=== PATIENT | male | born 1940 | race Caucasian/White ===

== ENCOUNTER → 2017-02-21 | Outpatient (CLI) | payer MEDICARE, OTHER ==
[~2017-02-21] MED LIST: CIAL20TA PO; FURO40TA PO; HYDR25TA5 PO; LATA.005%O EACH EYE; LATA0.002 EACH EYE; POTA20TA5 PO
[2017-02-21 15:36] LABS: POTASSIUM 4.1 MEQ/L (3.5-5.1)
== END ==
LOC: CLAB 14:03
PROVIDERS: ATTEND Family Medicine
DX: E87.6 Hypokalemia (principal)
CPT/HCPCS: 36415; 80048

== ENCOUNTER → 2018-02-14 | Outpatient (CLI) | payer MEDICARE ==
[~2018-02-14] MED LIST changes: -LATA0.002 EACH EYE; +MACR100C2 PO; +POTA-163 PO
[2018-02-14 10:32] LABS: ALBUMIN 3.1 GM/DL (3.4-5.0); AST (GOT) 33 U/L (15-37); BICARBONATE 27.5 MEQ/L (21.0-32.0); BLOOD UREA NITROGEN 18 MG/DL (7-18); CALCIUM 9.3 MG/DL (8.5-10.1); CHLORIDE 100 MEQ/L (98-107); CREATININE 1.06 MG/DL (0.60-1.30); GLOMERULAR FILTRATION RATE 68 ML/MIN (>89); GLUCOSE,FASTING 96 MG/DL (74-99); SODIUM (NA) 137 MEQ/L (136-145)
[2018-02-14 10:33] LABS: ALT (GPT) 30 U/L (12-78)
[2018-02-14 10:35] LABS: ALKALINE PHOSPHATASE 95 U/L (45-117); TOTAL BILIRUBIN ADULT 0.6 MG/DL (0.2-1.0); TOTAL PROTEIN 7.8 GM/DL (6.4-8.2)
[2018-02-14 11:10] LABS: AMORPHOUS SEDIMENT, URINE RARE; BACTERIA, URINE MANY /hpf; BILIRUBIN, URINE NEG (NEG); BLOOD, URINE TRACE (NEG); GLUCOSE,URINE NEG (NEG); KETONE, URINE NEG (NEG); MUCUS URINE FEW /lpf (OCC); NITRITE,URINE NEG (NEG); SQUAMOUS EPITHELIAL CELL URINE 1 /hpf (0-5); URINE COLOR YELLOW (YELLW/STRAW); URINE LEUKOCYTE ESTERASE LARGE (NEG)
== END ==
LOC: CLAB 08:57
PROVIDERS: ATTEND Family Medicine
DX: I10 Essential (primary) hypertension (principal); R39.9 Unspecified symptoms and signs involving the genitourinary system; B96.1 Klebsiella pneumoniae [K. pneumoniae] as the cause of diseases classified elsewhere; Z16.11 Resistance to penicillins; Z16.29 Resistance to other single specified antibiotic
CPT/HCPCS: 36415; 80053; 81001; 87077; 87086; 87186

== ENCOUNTER 2018-02-19 16:07 | Inpatient (IN) | payer MEDICARE ==
[~2018-02-19] VITALS: Ht 175.3 cm; Wt 89.1 kg
[~2018-02-19 16:07] MED LIST changes: -MACR100C2 PO; -POTA-163 PO
[2018-02-19 16:19] VITALS: BP 138/83; PULSE 98; RESP 20; TEMP 99.2; O2SAT 98
[2018-02-19] MEDS ORDERED: SODIUM CHLOR 0.9% 1000 ML INJ 1,000 ML IV ONE (16:45)
--- NOTE | 2018-02-19 17:01 | PD ---
HPI Chief Complaint: General Weakness Time Seen by Provider: 16:25 Travel History International Travel<30 days: No Contact w/Intl Traveler<30days: No Traveled to known affect area: No History of Present Illness HPI Patient is a 77-year-old male who presents to the emergency room with his for evaluation of general weakness. Patient's reports that 1 week ago, he was diagnosed with a uti and was started on antibiotics by his pcp. Patient has been taking his antibiotics as prescribed, reports that over the past few days, he has been very weak. Reports that today, he was unable to get out of bed due to his weakness. Patient's was able to get him into a wheelchair today and bring them to the kitchen with goal of getting him to drink fluids to maintain hydration. reports that she went to go make his bed and came back with him on the floor. Reports that she was not able to get him up from the floor, they did call fire rescue for help. Patient denied trauma to head/ denies loc. Denies any chest pain/sob/abdominal pain at this time. Patient's is concerned as whenever this happens, patient ends up with sepsis due to UTI. Reports concerns that patient is so weak, he cannot ambulate or care for himself. Reports low grade fevers at home. PFSH Past Medical History Cardiovascular Problems: Yes (heart blockage) Congestive Heart Failure: Yes Genitourinary: Yes (chronic uti's) Social History Alcohol Use: Yes (occassional beer) Tobacco Use: No Substance Use: No Allergies-Medications (Allergen,Severity, Reaction): Coded Allergies: No Known Allergies (Unverified Adverse Reaction, Unknown, 02/19/18) Reported Meds & Prescriptions Reported Meds & Active Scripts Active Cialis (Tadalafil) 20 Mg Tab 20 Mg PO DAILY PRN Do not exceed 1 dose/day. Furosemide 40 Mg Tab 40 Mg PO DAILY Potassium Chloride Microencaps 20 Meq Tab 40 Meq PO DAILY Hydrochlorothiazide 25 Mg Tab 25 Mg PO DAILY Reported Xalatan Opth Drops (Latanoprost) 0.005% Drops 1 Drop EACH EYE HS Review of Systems General / Constitutional: No: Fever Eyes: No: Visual changes HENT: No: Headaches Cardiovascular: No: Chest Pain or Discomfort Respiratory: No: Shortness of Breath Gastrointestinal: No: Abdominal Pain Genitourinary: Positive: Urgency, Frequency, Dysuria Musculoskeletal: No: Pain Skin: No Rash Neurologic: Positive: Weakness Psychiatric: No: Depression Endocrine: No: Polydipsia Hematologic/Lymphatic: No: Easy Bruising Physical Exam Narrative GENERAL: Moderate distress SKIN: Focused skin assessment warm/dry. HEAD: Atraumatic. Normocephalic. EYES: Pupils equal and round. No scleral icterus. No injection or drainage. ENT: No nasal bleeding or discharge. Mucous membranes pink and moist. NECK: Trachea midline. No JVD. CARDIOVASCULAR: Regular rate and rhythm. No murmur appreciated. RESPIRATORY: No accessory muscle use. Clear to auscultation. Breath sounds equal bilaterally. GASTROINTESTINAL: Abdomen soft, non-tender, nondistended. Hepatic and splenic margins not palpable. MUSCULOSKELETAL: No obvious deformities. No clubbing. No cyanosis. No edema. NEUROLOGICAL: Awake and alert. No obvious cranial nerve deficits. PSYCHIATRIC: Flat mood and affect; insight and judgment normal. Data Data Last Documented VS Vital Signs Date Time Temp Pulse Resp B/P (MAP) Pulse Ox O2 Delivery O2 Flow Rate FiO2 02/19/18 17:40 95 Room Air 02/19/18 17:40 76 18 131/65 (87) 2.00 02/19/18 16:19 99.2 Orders Orders Sepsis Workup Initiated (02/19/18 ) Complete Blood Count With Diff (02/19/18 16:34) Comprehensive Metabolic Panel (02/19/18 16:34) Lactic Acid Sepsis Protocol (02/19/18 16:34) Urinalysis - C+S If Indicated (02/19/18 16:34) Blood Culture (02/19/18 16:34) Chest, Single Ap (02/19/18 16:34) Blood Glucose (02/19/18 16:34) Ecg Monitoring (02/19/18 16:34) Iv Access Insert/Monitor (02/19/18 16:34) Oximetry (02/19/18 16:34) Oxygen Administration (02/19/18 16:34) Sodium Chlor 0.9% 1000 Ml Inj (Ns 1000 M (02/19/18 16:45) Cath For Specimen (02/19/18 16:34) Electrocardiogram (02/19/18 ) Urine Culture (02/19/18 17:00) Ceftriaxone Inj (Rocephin Inj) (02/19/18 18:00) Admit Order (Ed Use Only) (02/19/18 18:37) Labs Laboratory Tests Test 02/19/18 17:00 White Blood Count 22.0 TH/MM3 Red Blood Count 5.07 MIL/MM3 Hemoglobin 16.3 GM/DL Hematocrit 46.3 % Mean Corpuscular Volume 91.5 FL Mean Corpuscular Hemoglobin 32.2 PG Mean Corpuscular Hemoglobin Concent 35.2 % Red Cell Distribution Width 13.5 % Platelet Count 268 TH/MM3 Mean Platelet Volume 7.7 FL Neutrophils (%) (Auto) 89.9 % Lymphocytes (%) (Auto) 2.8 % Monocytes (%) (Auto) 6.6 % Eosinophils (%) (Auto) 0.5 % Basophils (%) (Auto) 0.2 % Neutrophils # (Auto) 19.8 TH/MM3 Lymphocytes # (Auto) 0.6 TH/MM3 Monocytes # (Auto) 1.4 TH/MM3 Eosinophils # (Auto) 0.1 TH/MM3 Basophils # (Auto) 0.0 TH/MM3 CBC Comment DIFF FINAL Differential Comment Urine Color YELLOW Urine Turbidity HAZY Urine pH 6.0 Urine Specific Jones 1.015 Urine Protein 30 mg/dL Urine Glucose (UA) NEG mg/dL Urine Ketones 40 mg/dL Urine Occult Blood TRACE Urine Nitrite NEG Urine Bilirubin NEG Urine Urobilinogen 4.0 MG/DL Urine Leukocyte Esterase LARGE Urine RBC 1 /hpf Urine WBC 125 /hpf Urine Squamous Epithelial Cells 1 /hpf Urine Bacteria MANY /hpf Urine Mucus FEW /lpf Microscopic Urinalysis Comment CATH-CULTURE IND Blood Urea Nitrogen 13 MG/DL Creatinine 1.33 MG/DL Random Glucose 141 MG/DL Total Protein 8.5 GM/DL Albumin 3.0 GM/DL Calcium Level 9.1 MG/DL Alkaline Phosphatase 80 U/L Aspartate Amino Transf (AST/SGOT) 89 U/L Alanine Aminotransferase (ALT/SGPT) 28 U/L Total Bilirubin 1.9 MG/DL Sodium Level 128 MEQ/L Potassium Level 4.3 MEQ/L Chloride Level 90 MEQ/L Carbon Dioxide Level 26.2 MEQ/L Anion Gap 12 MEQ/L Estimat Glomerular Filtration Rate 52 ML/MIN Lactic Acid Level 3.0 mmol/L [facility] Medical Decision Making Medical Screen Exam Complete: Yes Emergency Medical Condition: Yes Medical Record Reviewed: Yes Interpretation(s) EKG at 1732: NSR at 86bpm, qt/qtc: 377/420, nonspecific t wave changes Vital Signs Date Time Temp Pulse Resp B/P (MAP) Pulse Ox O2 Delivery O2 Flow Rate FiO2 02/19/18 16:19 99.2 98 20 138/83 (101) 98 Differential Diagnosis uti, pyelonephritis, electrolyte abnormality, acs Narrative Course 77 year old male who presents to the ER with complaints of generalized weakness with UTI symptoms. Family is unsure what antibiotic he is taking at this time. During the course of the patients emergency department visit, the patients history, examination, and differential diagnosis were reviewed with the patient. The patient was placed on a child monitor with oximetry and frequent blood pressure monitoring. The patient had an IV access obtained and blood work sent for analysis. The patients laboratory studies were reviewed and remarkable for CBC & BMP Diagram 02/19/18 17:00 Alanine Aminotransferase (ALT/SGPT) 28 Radiology studies were reviewed and remarkable for Last Impressions Chest X-Ray 02/19/18 1634 Signed Impressions: CONCLUSION: Diffuse interstitial prominence suggesting CHF versus chronic interstitial diaz ges. Patient with a white blood cell count 22,000, UA positive for 125 white blood cells, many bacteria, large leuk esterase, negative nitrites, previous cultures were reviewed. ORDERED: URINE CULT ACT WKST: URINE 02/14/18 #1 Procedure Result Verified Site URINE CULTURE Final 02/16/18-1302 >100,000 CFU/ML KLEBSIELLA PNEUMONIAE 50-100,000 CFU/ML MIXED GRAM POSITIVE VIJI (PROBABLE CONTAMINANTS) KLE PNEUMO M.I.C. RX --------- --- AMOXICILLIN/K CLAVULANATE <8/4 S PIPERCILLIN/TAZOBACTAM <16 S AMPICILLIN/SULBACTAM >16/8 R CEFAZOLIN 4 S CEFUROXIME 8 S CEFTRIAXONE <1 S CEFTAZIDIME <1 S CEFEPIME <2 S AZTREONAM <4 S ERTAPENEM <0.5 S IMIPENEM <1 S GENTAMICIN <4 S TOBRAMYCIN <4 S TETRACYCLINE >8 R TRIMETH/SULFA <2/38 S TRIMETHOPRIM <8 S NITROFURANTOIN 64 I CIPROFLOXACIN <1 S Urine culture is currently pending. Plan to give patient a dose of Rocephin at this time, patient will require admission to the hospital for treatment of failed outpatient treatment for UTI CBC & BMP Diagram 02/19/18 17:00 Lactate 3.0 patient's culture is positive for kleb pneumonia, he is sensitive to rocephin which was ordered for him. call made to family practice residents for admission case reviewed with fp resident who accepts pt to service Diagnosis Primary Impression: UTI (urinary tract infection) Qualified Codes: N30.00 - Acute cystitis without hematuria Additional Impression: Generalized weakness Admitting Information Admitting Physician Requests: Admit Myla Diaz DO February 19, 2018 17:01
--- NOTE | 2018-02-19 17:28 | RADRPT ---
EXAM DATE: 02/19/2018 5:21 PM EDT AGE/SEX: 77 years / Male INDICATIONS: Fever. Weakness. CLINICAL DATA: This is the patient's initial encounter. Patient reports that signs and symptoms have been present for 3 days and indicates a pain score of 5/10. MEDICAL/SURGICAL HISTORY: None. None. COMPARISON: No prior [facility] exams available for comparison. FINDINGS: The heart is normal in size. There is diffuse interstitial prominence. Considerations would include e amira CHF versus chronic interstitial lung disease. No prior is available for comparison. The visualiz ed bony structures appear grossly intact. CONCLUSION: Diffuse interstitial prominence suggesting CHF versus chronic interstitial changes. Electronically signed by: Cristian Ace MD 02/19/2018 5:26 PM EDT
[2018-02-19 17:34] LABS: AUTOMATED NEUTROPHIL # 19.8 TH/MM3 (1.8-7.7); BASOPHIL % 0.2 % (0.0-2.0); EOSINOPHIL # 0.1 TH/MM3 (0-0.4); EOSINOPHIL % 0.5 % (0.0-4.0); HEMATOCRIT 46.3 % (39.0-51.0); HEMOGLOBIN 16.3 GM/DL (13.0-17.0); LYMPH % 2.8 % (9.0-44.0); LYMPHOCYTE # 0.6 TH/MM3 (1.0-4.8); MEAN CELL VOLUME 91.5 FL (80.0-100.0); MEAN CORPUSCULAR HEMOGLOBIN 32.2 PG (27.0-34.0); MEAN CORPUSCULAR HGB CONC 35.2 % (32.0-36.0); MEAN PLATELET VOLUME 7.7 FL (7.0-11.0); MONO % 6.6 % (0.0-8.0); MONOCYTE # 1.4 TH/MM3 (0-0.9); NEUT % 89.9 % (16.0-70.0); PLATELET COUNT 268 TH/MM3 (150-450); RED BLOOD COUNT 5.07 MIL/MM3 (4.50-5.90); RED CELL DISTRIBUTION WIDTH 13.5 % (11.6-17.2)
[2018-02-19 17:40] VITALS: BP 131/65; PULSE 75; PULSE 76; RESP 18; O2SAT 95
[2018-02-19 17:42] LABS: BACTERIA, URINE MANY /hpf; BILIRUBIN, URINE NEG (NEG); BLOOD, URINE TRACE (NEG); GLUCOSE,URINE NEG (NEG); KETONE, URINE 40 mg/dL (NEG); MUCUS URINE FEW /lpf (OCC); NITRITE,URINE NEG (NEG); SQUAMOUS EPITHELIAL CELL URINE 1 /hpf (0-5); URINE COLOR YELLOW (YELLW/STRAW); URINE LEUKOCYTE ESTERASE LARGE (NEG)
[2018-02-19 17:51] LABS: ALT (GPT) 28 U/L (12-78)
[2018-02-19 17:52] LABS: ALKALINE PHOSPHATASE 80 U/L (45-117); TOTAL BILIRUBIN ADULT 1.9 MG/DL (0.2-1.0); TOTAL PROTEIN 8.5 GM/DL (6.4-8.2)
[2018-02-19] MEDS ORDERED: cefTRIAXone INJ 1,000 MG in SODIUM CHLORIDE 0.9% INJ 100 ML IV ONE (18:00)
[2018-02-19 18:18] LABS: AST (GOT) 89 U/L (15-37); BICARBONATE 26.2 MEQ/L (21.0-32.0); BLOOD UREA NITROGEN 13 MG/DL (7-18); CALCIUM 9.1 MG/DL (8.5-10.1); CHLORIDE 90 MEQ/L (98-107); CREATININE 1.33 MG/DL (0.60-1.30); GLOMERULAR FILTRATION RATE 52 ML/MIN (>89); GLUCOSE,RANDOM 141 MG/DL (74-106); SODIUM (NA) 128 MEQ/L (136-145)
[2018-02-19] MEDS ORDERED: MACR100C2 PO (18:42)
[2018-02-19] MEDS ORDERED: POTA-163 PO (18:42)
--- NOTE | 2018-02-19 19:00 | HHI.HP ---
HPI Service Family Medicine Primary Care Physician Loren Chapman MD Admission Diagnosis Sepsis, uti Diagnoses: International Travel<30 Days: No Contact w/Intl Traveler<30days: No Known Affected Area: No History of Present Illness Patient is a 77-year-old male past medical history of urethral strictures (per chart review), glaucoma, and HTN who presented to the ED via [facility] due to worsening weakness and confusion from UTI. Patient was seen in the family medicine clinic on 02/12 with urinary symptoms (dysuria) and was prescribed Macrobid 100mg Q12hrs. at bedside provided contributory history. She reports patient's urinary symptoms were not improving on Macrobid however he refused to return to the clinic. She reports he was having fevers (subjective) and chills at home. Today he became extremely weak, unable to walk or stand on his own and confused. The weakness was so severe he necessitated use of a wheelchair. Thus his decided to call 911 to have him evaluated in the ED. Endorses back pain and dysuria. Denies chest pain, shortness of breath, N/V, hematuria or history of kidney stones. Per chart review patient has history of urethral strictures, however patient and reports that he is able to void. (Carla Small MD, R1) Review of Systems Constitutional: COMPLAINS OF: Fever, Chills Endocrine: COMPLAINS OF: Heat/cold intolerance (cold intolerance) Eyes: COMPLAINS OF: Vision loss Ears, nose, mouth, throat: DENIES: Ear Pain Respiratory: COMPLAINS OF: Cough (since last month), DENIES: Wheezing, Shortness of breath Cardiovascular: DENIES: Chest pain, Syncope Gastrointestinal: COMPLAINS OF: Difficulty Swallowing (difficulty swallilng solid foods), DENIES: Abdominal pain, Bloody stools, Diarrhea, Nausea, Vomiting Genitourinary: COMPLAINS OF: Dysuria, DENIES: Urinary incontinence, Hematuria Musculoskeletal: COMPLAINS OF: Back pain (chronic back pain but it has worsen within the past wk), DENIES: Neck pain Integumentary: DENIES: Rash Hematologic/lymphatic: DENIES: Bruising Neurologic: DENIES: Speech Problems Psychiatric: COMPLAINS OF: Confusion (Carla Small MD, R1) Past Family Social History Past Medical History Glaucoma HTN LE edema Hypokalemia Dysphagia with solid foods 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 ( 77yr ago) urosepsis (2012) Past Surgical History Tonsillectomy Left arm surgery Cataract surgery (Carla Small MD, R1) Allergies: Coded Allergies: No Known Allergies (Unverified Allergy, Unknown, 02/19/18) Family History HTN- Daughter MS- father depression- son Social History Former smoker for 20yr, quit 3 yr ago No alcohol or illicit drug use Patient ambulates independently at baseline without use of assistive devices (Carla Small MD, R1) Physical Exam Vital Signs Vital Signs Date Time Temp Pulse Resp B/P (MAP) Pulse Ox O2 Delivery O2 Flow Rate FiO2 02/19/18 17:40 95 Room Air 02/19/18 17:40 76 18 131/65 (87) 95 Nasal Cannula 2.00 02/19/18 17:40 76 18 94 Room Air 02/19/18 17:40 75 18 131/65 (87) 95 2.00 02/19/18 16:19 99.2 98 20 138/83 (101) 98 Physical Exam GENERAL: This is a well-nourished, well-developed patient, in no apparent distress. SKIN: No rashes, ecchymoses or lesions. Cool and dry. HEAD: Atraumatic. Normocephalic. No temporal or scalp tenderness. EYES: Pupils equal round and reactive. Extraocular motions intact. No scleral icterus. No injection or drainage. ENT: Nose without bleeding, purulent drainage or septal hematoma. Throat without erythema, tonsillar hypertrophy or exudate. Uvula midline. Airway patent. NECK: Trachea midline. No JVD or lymphadenopathy. Supple, nontender, no meningeal signs. CARDIOVASCULAR: Regular rate and rhythm without murmurs, gallops, or rubs. RESPIRATORY: Coarse breath sounds bilaterally at bases. No wheezes, rales, or rhonchi. GASTROINTESTINAL: Abdomen soft, nondistended, mild suprapubic tenderness on palpation. No hepato-splenomegaly, or palpable masses. No guarding. Minimal left CVA tenderness on palpation. MUSCULOSKELETAL: Extremities without clubbing, cyanosis, or edema. No joint tenderness, effusion, or edema noted. No calf tenderness. +2 DP pulses BL. NEUROLOGICAL: Awake, alert and oriented 3. Cranial nerves II through XII intact. Motor and sensory grossly within normal limits. 4 out of 5 muscle strength in all muscle groups. Normal speech. Laboratory Laboratory Tests Test 02/19/18 17:00 White Blood Count 22.0 Red Blood Count 5.07 Hemoglobin 16.3 Hematocrit 46.3 Mean Corpuscular Volume 91.5 Mean Corpuscular Hemoglobin 32.2 Mean Corpuscular Hemoglobin Concent 35.2 Red Cell Distribution Width 13.5 Platelet Count 268 Mean Platelet Volume 7.7 Neutrophils (%) (Auto) 89.9 Lymphocytes (%) (Auto) 2.8 Monocytes (%) (Auto) 6.6 Eosinophils (%) (Auto) 0.5 Basophils (%) (Auto) 0.2 Neutrophils # (Auto) 19.8 Lymphocytes # (Auto) 0.6 Monocytes # (Auto) 1.4 Eosinophils # (Auto) 0.1 Basophils # (Auto) 0.0 CBC Comment DIFF FINAL Differential Comment Urine Color YELLOW Urine Turbidity HAZY Urine pH 6.0 Urine Specific Flanagan 1.015 Urine Protein 30 Urine Glucose (UA) NEG Urine Ketones 40 Urine Occult Blood TRACE Urine Nitrite NEG Urine Bilirubin NEG Urine Urobilinogen 4.0 Urine Leukocyte Esterase LARGE Urine RBC 1 Urine WBC 125 Urine Squamous Epithelial Cells 1 Urine Bacteria MANY Urine Mucus FEW Microscopic Urinalysis Comment CATH-CULTURE IND Blood Urea Nitrogen 13 Creatinine 1.33 Random Glucose 141 Total Protein 8.5 Albumin 3.0 Calcium Level 9.1 Alkaline Phosphatase 80 Aspartate Amino Transf (AST/SGOT) 89 Alanine Aminotransferase (ALT/SGPT) 28 Total Bilirubin 1.9 Sodium Level 128 Potassium Level 4.3 Chloride Level 90 Carbon Dioxide Level 26.2 Anion Gap 12 Estimat Glomerular Filtration Rate 52 Lactic Acid Level 3.0 Date/Time Source Procedure Growth Status 02/19/18 17:50 Blood Peripheral Aerobic Blood Culture Pending Received 02/19/18 17:50 Blood Peripheral Anaerobic Blood Culture Pending Received 02/19/18 17:00 Urine Catheterized Urine Urine Culture Pending Received (Carla Small MD, R1) Result Diagram: 02/19/18 1700 02/19/18 1700 Imaging Last Impressions Chest X-Ray 02/19/18 1634 Signed Impressions: CONCLUSION: Diffuse interstitial prominence suggesting CHF versus chronic interstitial diaz ges. (Carla Small MD, R1) Caprini VTE Risk Assessment Caprini VTE Risk Assessment: Mod/High Risk (score >= 2) Caprini Risk Assessment Model Point Value = 1 Point Value = 2 Point Value = 3 Point Value = 5 Age 41-60 Minor surgery BMI > 25 kg/m2 Swollen legs Varicose veins or History of unexplained or recurrent spontaneous Oral contraceptives or hormone replacement Sepsis (< 1 month) Serious lung disease, including pneumonia (< 1 month) Abnormal pulmonary function Acute myocardial infarction Congestive heart failure (< 1 month) History of inflammatory bowel disease Medical patient at bed rest Age 61-74 Arthroscopic surgery Major open surgery (> 45 min) Laparoscopic surgery (> 45 min) Malignancy Confined to bed (> 72 hours) Immobilizing plaster cast Central venous access Age >= 75 History of VTE Family history of VTE Factor V Leiden Prothrombin [id number] Lupus anticoagulant Anticardiolipin antibodies Elevated serum homocysteine Heparin-induced thrombocytopenia Other congenital or acquired thrombophilia Stroke (< 1 month) Elective arthroplasty Hip, pelvis, or leg fracture Acute spinal cord injury (< 1 month) Prophylaxis Regimen Total Risk Factor Score Risk Level Prophylaxis Regimen 0-1 Low Early ambulation 2 Moderate Order ONE of the following: *Sequential Compression Device (SCD) *Heparin 5000 units SQ BID 3-4 Higher Order ONE of the following medications: *Heparin 5000 units SQ TID *Enoxaparin/Lovenox 40 mg SQ daily (WT < 150 kg, CrCl > 30 mL/min) *Enoxaparin/Lovenox 30 mg SQ daily (WT < 150 kg, CrCl > 10-29 mL/min) *Enoxaparin/Lovenox 30 mg SQ BID (WT < 150 kg, CrCl > 30 mL/min) AND/OR *Sequential Compression Device (SCD) 5 or more Highest Order ONE of the following medications: *Heparin 5000 units SQ TID (Preferred with Epidurals) *Enoxaparin/Lovenox 40 mg SQ daily (WT < 150 kg, CrCl > 30 mL/min) *Enoxaparin/Lovenox 30 mg SQ daily (WT < 150 kg, CrCl > 10-29 mL/min) *Enoxaparin/Lovenox 30 mg SQ BID (WT < 150 kg, CrCl > 30 mL/min) AND *Sequential Compression Device (SCD) (Carla Small MD, R1) Assessment and Plan Assessment and Plan Patient is a 77-year-old male past medical history of urethral strictures (per chart review), glaucoma, hypokalemia and urethral strictures presenting with: Code Status Full code Discussed Condition With SDW Dr. Marion (Carla Small MD, R1) Attending Attestation THIS CASE WAS DISCUSSED WITH THE RESIDENT PHYSICIANS. I HAVE REVIEWED THE RECORD AND AGREE WITH THE ABOVE NOTE AND PLAN OF CARE WAS DISCUSSED. I HAVE AUTHORIZED THE ORDER FOR ADMISSION TO AN IN-PATIENT STATUS. (Sheldon German MD) Problem List: (1) Sepsis ICD Codes: A41.9 - Sepsis, unspecified organism Status: Acute Plan: Patient with sxs of weakness and confusion today in the setting of failed outpatient treatment of UTI with Macrobid. In the ED patient was found to meet severe sepsis criteria due to urinary source with leukocytosis (22) , elevated HR (98) and lactic acid 3. In the ED patient received 1 L bolus of NS and Rocephin 1 gm IV x1. Urine culture from 02/12 during clinic visit shows Klebsiella pneumonia greater than 100,000 colonies sensitive to Macrobid and Rocephin. UA today shows large leuk esterase, urine WBC 125, positive ketones and protein Patient reports improvement of sxs since treatment in the ED. He is awake, alert and oriented x 3. C/w rocephin 1 g IV Q24hrs IVF at 100mls/hr Tylenol for pain Follow-up: Blood cultures, urine culture Lactic acid A.m. labs Renal ultrasound (2) UTI (urinary tract infection) ICD Codes: N39.0 - Urinary tract infection, site not specified Status: Acute Plan: see plan above (3) Hyponatremia ICD Codes: E87.1 - Hypo-osmolality and hyponatremia Status: Resolved Plan: Patient found to have a sodium of 128 on admission Follow-up repeat BMP Replete as needed (4) Dysphagia ICD Codes: R13.10 - Dysphagia, unspecified Status: Chronic Plan: Patient with chronic history of dysphagia with solid foods Follow-up bedside swallow and advance diet to mechanical soft if patient able to pass swallow test. 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 However patient and report he is able to void Small amount of dark urine observed in bedside portable urinal bottle Follow-up: I/Os bladder scan Place [place] if bladder scan shows retention of greater than 300 cc of urine (7) Glaucoma ICD Codes: H40.9 - Glaucoma Status: Acute Plan: Continue with home medication (8) HTN (hypertension) ICD Codes: I10 - Hypertension Status: Chronic Plan: BP on admission 138/83 c/w home medications (9) Nutrition, metabolism, and development symptoms ICD Codes: R63.8 - Other symptoms and signs concerning food and fluid intake Plan: Fluids: 100mls/hr Electrolytes: Continue to monitor and replete as needed Nutrition: NPO pending results of bedside swallow DVT prophylaxis: Heparin TID (Carla Small MD, R1) Physician Certification 2 Midnight Certification Type: Admission for Inpatient Services Order for Inpatient Services The services are ordered in accordance with Medicare regulations or non- Medicare payer requirements, as applicable. In the case of services not specified as inpatient-only, they are appropriately provided as inpatient services in accordance with the 2-midnight benchmark. Estimated LOS (days): 4 days is the estimated time the patient will need to remain in the hospital, assuming treatment plan goals are met and no additional complications. Post-Hospital Plan: Home (Carla Small MD, R1) Problem Qualifiers (1) UTI (urinary tract infection): Qualified Codes: N30.00 - Acute cystitis without hematuria Carla Small MD, R1 February 19, 2018 18:59 Sheldon German MD February 20, 2018 10:33
[2018-02-19] MEDS ORDERED: NALOXONE HCL 0.4 MG/ML AMP IV PUSH PRN (19:15)
[2018-02-19] MEDS ORDERED: MAGNESIUM HYDROXIDE SUSP 30 ML CUP PO PRN (19:15)
[2018-02-19] MEDS ORDERED: LACTULOSE SYRUP 20 GM/30 ML CUP PO PRN (19:15)
[2018-02-19] MEDS ORDERED: SENNOSIDES 8.6 MG TAB PO PRN (19:15)
[2018-02-19] MEDS ORDERED: BISACODYL 10 MG SUPP RECTAL PRN (19:15)
[2018-02-19] MEDS ORDERED: SODIUM CHLORIDE 0.9% FLUSH 10 ML FLUSH IV FLUSH PRN (19:15)
[2018-02-19] MEDS ORDERED: ONDANSETRON ODT 4 MG TAB PO PRN (19:30)
[2018-02-19] MEDS ORDERED: ACETAMINOPHEN 325 MG TAB PO PRN (19:30)
[2018-02-19 19:36] VITALS: O2SAT 95
[2018-02-19 20:00] VITALS: BP 138/62; PULSE 74; RESP 18; O2SAT 95
[2018-02-19] MEDS: SODIUM CHLOR 0.9% 1000 ML INJ 1,000 ML IV SCH (20:04)
--- NOTE | 2018-02-19 20:56 | RADRPT ---
EXAM DATE: 02/19/2018 8:51 PM EDT AGE/SEX: 77 years / Male INDICATIONS: Increased BUN and creatinine. CLINICAL DATA: This is the patient's initial encounter. Patient reports that signs and symptoms have been present for 1 day and indicates a pain score of 0/10. MEDICAL/SURGICAL HISTORY: . Congestive heart failure. Glaucoma. Hypokalemia. Chronic urinary tract infection. . Tonsillectomy. Left arm surgery. Cataract surgery. COMPARISON: No prior [facility] exams available for comparison. No external comparison. MEASUREMENTS: Right Kidney:__8.3 x 5.5 x 4.9 cm Left Kidney:__10.1 x 5.7 x 5.6 cm FINDINGS: Right Kidney: Normal in size, shape and echogenicity. No evidence of hydronephrosis. Left Kidney: Normal in size, shape and echogenicity. No evidence of hydronephrosis. Bladder: Within normal limits given the degree of distension. CONCLUSION: 1. Unremarkable bilateral renal ultrasound. Electronically signed by: Sheldon Oliver MD 02/19/2018 8:54 PM EDT
[2018-02-19 21:18] VITALS: BP 178/78; PULSE 92; RESP 16; TEMP 97; O2SAT 93
[2018-02-19] MEDS: LATANOPROST 0.005% OPHT SOLN 2.5 ML BTL EACH EYE SCH (23:28)
[2018-02-19] MEDS: HEPARIN SODIUM - SQ 10,000 UNITS/ML VIAL SQ SCH (23:29)
[2018-02-19] MEDS: DOCUSATE SODIUM 50 MG/SENNA 8.6 MG TAB PO SCH (23:29)
[2018-02-19] MEDS: SODIUM CHLORIDE 0.9% FLUSH 10 ML FLUSH IV FLUSH SCH (23:29)
[2018-02-20] VITALS (11 sets, daily range): BP systolic 108–135; BP diastolic 66–83; PULSE 61–87; RESP 17–20; TEMP 97.4–97.9; O2SAT 94–99
[2018-02-20] MEDS ORDERED: FAMOTIDINE 20 MG TAB PO PRN (02:00)
[2018-02-20] MEDS ORDERED: LORazepam 1 MG TAB PO PRN (02:00)
[2018-02-20] MEDS ORDERED: RESP: ALBUTEROL 2.5 MG/IPRATROPIUM 0.5 MG NEB (PRN) NEB (02:00)
[2018-02-20] MEDS ORDERED: ACETAMINOPHEN 325 MG TAB PO PRN (02:00)
[2018-02-20] MEDS ORDERED: cloNIDine HCL 0.1 MG TAB PO PRN (02:00)
[2018-02-20] MEDS ORDERED: FLUMAZENIL 0.5 MG/5 ML VIAL IV PUSH PRN (02:00)
[2018-02-20] MEDS ORDERED: LORazepam 2 MG/ML VIAL IV PUSH PRN ×4 (02:00)
[2018-02-20] MEDS ORDERED: SODIUM CHLORIDE 0.9% FLUSH 10 ML FLUSH IV FLUSH PRN (02:00)
[2018-02-20] MEDS ORDERED: LORazepam 2 MG TAB PO PRN (02:00)
[2018-02-20] MEDS ORDERED: ONDANSETRON ODT 4 MG TAB PO PRN (02:15)
[2018-02-20] MEDS ORDERED: PILL SPLITTER OTHER PRN (02:15)
[2018-02-20] MEDS: HEPARIN SODIUM - SQ 10,000 UNITS/ML VIAL SQ SCH ×3 (04:00→20:53)
[2018-02-20] MEDS: SODIUM CHLOR 0.9% 1000 ML INJ 1,000 ML IV SCH ×2 (05:21→18:31)
[2018-02-20 05:45] LABS: ALBUMIN 2.5 GM/DL (3.4-5.0); ALKALINE PHOSPHATASE 64 U/L (45-117); ALT (GPT) 17 U/L (12-78); AST (GOT) 25 U/L (15-37); BLOOD UREA NITROGEN 13 MG/DL (7-18); CHLORIDE 97 MEQ/L (98-107); CREATININE 0.89 MG/DL (0.60-1.30); GLOMERULAR FILTRATION RATE 83 ML/MIN (>89); GLUCOSE,RANDOM 109 MG/DL (74-106); SODIUM (NA) 136 MEQ/L (136-145); TOTAL BILIRUBIN ADULT 1.1 MG/DL (0.2-1.0); TOTAL PROTEIN 6.7 GM/DL (6.4-8.2)
[2018-02-20 06:04] LABS: HEMATOCRIT 41.6 % (39.0-51.0); HEMOGLOBIN 14.7 GM/DL (13.0-17.0); MEAN CELL VOLUME 91.5 FL (80.0-100.0); MEAN CORPUSCULAR HEMOGLOBIN 32.3 PG (27.0-34.0); MEAN CORPUSCULAR HGB CONC 35.3 % (32.0-36.0); MEAN PLATELET VOLUME 7.1 FL (7.0-11.0); PLATELET COUNT 246 TH/MM3 (150-450); RED BLOOD COUNT 4.55 MIL/MM3 (4.50-5.90); RED CELL DISTRIBUTION WIDTH 12.9 % (11.6-17.2); WHITE BLOOD COUNT 15.8 TH/MM3 (4.0-11.0)
[2018-02-20] MEDS ORDERED: POTASSIUM CHLORIDE 10 MEQ CONTROLLED RELEASE TAB PO ONE (06:45)
[2018-02-20 08:02] LABS: BANDS 4 % (0-6); LYMPHOCYTES 1 % (9-44); MONOCYTES 6 % (0-8); NEUTROPHIL # MANUAL DIFF 14.4 TH/MM3 (1.8-7.7); POLYS (SEG NEUTROPHILS) 87 % (16-70)
[2018-02-20] MEDS: FOLIC ACID 1 MG TAB PO SCH (08:29)
[2018-02-20] MEDS: THIAMINE HCL 100 MG TAB PO SCH (08:29)
[2018-02-20] MEDS: FUROSEMIDE 40 MG TAB PO SCH (08:30)
[2018-02-20] MEDS: DOCUSATE SODIUM 50 MG/SENNA 8.6 MG TAB PO SCH ×2 (08:30→20:54)
[2018-02-20] MEDS: MULTIVITAMINS/MINERALS THERAPEUTIC TAB PO SCH (08:30)
[2018-02-20] MEDS: POTASSIUM CHLORIDE 20 MEQ CONTROLLED RELEASE TAB PO SCH (08:30)
[2018-02-20] MEDS: HYDROCHLOROTHIAZIDE 25 MG TAB PO SCH (08:31)
[2018-02-20] MEDS: SODIUM CHLORIDE 0.9% FLUSH 10 ML FLUSH IV FLUSH SCH ×3 (08:34→20:54)
--- NOTE | 2018-02-20 10:33 | HHI.HP ---
HPI Service Family Medicine Primary Care Physician Loren Chapman MD Admission Diagnosis Sepsis, uti Diagnoses: (1) Sepsis (2) UTI (urinary tract infection) (3) Hyponatremia (4) Dysphagia (5) ANA (acute kidney injury) (6) History of urethral stricture (7) Glaucoma (8) HTN (hypertension) (9) Nutrition, metabolism, and development symptoms International Travel<30 Days: No Contact w/Intl Traveler<30days: No Known Affected Area: No History of Present Illness 77-year-old male presenting with sepsis from a urinary tract infection. He was brought to the emergency department by [facility] due to progressive confusion, weakness, and malaise. Symptoms started approximately 10 days ago and he was seen in the family medicine clinic on 02/12 with urinary symptoms and started on Macrobid. He has been taking the Macrobid as prescribed but has progressively been getting weaker and more confused. His oral intake has declined and he began having subjective fevers and chills at home. On day of presentation, he became severely weak and was unable to walk or stand, therefore 911 was called by the . In the emergency department he was noted to have indications of a urinary tract infection on his UA and he was started on Rocephin. Urine culture from his office visit on 02/12 returned with Klebsiella pneumonia with intermittent response to Macrobid but is susceptible to Rocephin. He also received 1 L IV bolus of normal saline in the ER. On evaluation this morning, patient seems to be doing much better. He is awake alert and oriented and states that he is feeling much improved. He feels hungry at this time and would like to eat. He denies any fevers or chills. He denies any nausea or vomiting. He denies any abdominal pain. He denies any chest pain or shortness of breath. He continues to feel weak and would like to work with physical therapy. He is urinating, however states that his urine is dark and he did have a postvoid residual of 266 mL based on bladder scan. 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 ( 77yr ago) urosepsis (2011) Past Surgical History Tonsillectomy Left arm surgery Cataract surgery Allergies: Coded Allergies: No Known Allergies (Unverified Allergy, Unknown, 02/19/18) Family History HTN- Daughter MS- father depression- son Social History Former smoker for 20yr, quit 3 yr ago No alcohol or illicit drug use Patient ambulates independently at baseline without use of assistive devices Physical Exam Vital Signs Vital Signs Date Time Temp Pulse Resp B/P (MAP) Pulse Ox O2 Delivery O2 Flow Rate FiO2 02/20/18 09:00 95 Nasal Cannula 2.00 02/20/18 08:05 97.4 67 17 112/70 (84) 94 02/20/18 04:00 97.4 73 20 108/66 (80) 96 02/20/18 00:00 97.9 87 20 135/75 (95) 96 02/19/18 21:18 97.0 92 16 178/78 (111) 93 02/19/18 20:30 02/19/18 20:00 74 18 138/62 (87) 95 Nasal Cannula 2.00 02/19/18 19:36 95 Nasal Cannula 2.00 02/19/18 17:40 95 Room Air 02/19/18 17:40 76 18 131/65 (87) 95 Nasal Cannula 2.00 02/19/18 17:40 76 18 94 Room Air 02/19/18 17:40 75 18 131/65 (87) 95 2.00 02/19/18 16:19 99.2 98 20 138/83 (101) 98 Physical Exam GENERAL: Elderly appearing male, sitting up in bed in no obvious distress SKIN: No rashes, ecchymoses or lesions. Cool and dry. HEAD: Atraumatic. Normocephalic. EYES: Pupils equal round and reactive. Extraocular motions intact. No scleral icterus. No injection or drainage. CARDIOVASCULAR: Regular rate and rhythm without murmurs, gallops, or rubs. RESPIRATORY: Clear to auscultation bilaterally with no wheezes rales or rhonchi : Hypospadias on exam GASTROINTESTINAL: Abdomen soft, nondistended, no suprapubic pain or tenderness. No CVA tenderness. MUSCULOSKELETAL: Extremities without clubbing, cyanosis, or edema. NEUROLOGICAL: Awake, alert and oriented 3. Laboratory Laboratory Tests Test 02/19/18 17:00 02/20/18 05:00 02/20/18 05:40 White Blood Count 22.0 15.8 Red Blood Count 5.07 4.55 Hemoglobin 16.3 14.7 Hematocrit 46.3 41.6 Mean Corpuscular Volume 91.5 91.5 Mean Corpuscular Hemoglobin 32.2 32.3 Mean Corpuscular Hemoglobin Concent 35.2 35.3 Red Cell Distribution Width 13.5 12.9 Platelet Count 268 246 Mean Platelet Volume 7.7 7.1 Neutrophils (%) (Auto) 89.9 Lymphocytes (%) (Auto) 2.8 Monocytes (%) (Auto) 6.6 Eosinophils (%) (Auto) 0.5 Basophils (%) (Auto) 0.2 Neutrophils # (Auto) 19.8 Lymphocytes # (Auto) 0.6 Monocytes # (Auto) 1.4 Eosinophils # (Auto) 0.1 Basophils # (Auto) 0.0 CBC Comment DIFF FINAL AUTO DIFF Differential Comment FINAL DIFF MANUAL Urine Color YELLOW Urine Turbidity HAZY Urine pH 6.0 Urine Specific [place] 1.015 Urine Protein 30 Urine Glucose (UA) NEG Urine Ketones 40 Urine Occult Blood TRACE Urine Nitrite NEG Urine Bilirubin NEG Urine Urobilinogen 4.0 Urine Leukocyte Esterase LARGE Urine RBC 1 Urine WBC 125 Urine Squamous Epithelial Cells 1 Urine Bacteria MANY Urine Mucus FEW Microscopic Urinalysis Comment CATH-CULTURE IND Blood Urea Nitrogen 13 13 Creatinine 1.33 0.89 Random Glucose 141 109 Total Protein 8.5 6.7 Albumin 3.0 2.5 Calcium Level 9.1 8.0 Alkaline Phosphatase 80 64 Aspartate Amino Transf (AST/SGOT) 89 25 Alanine Aminotransferase (ALT/SGPT) 28 17 Total Bilirubin 1.9 1.1 Sodium Level 128 136 Potassium Level 4.3 2.7 Chloride Level 90 97 Carbon Dioxide Level 26.2 27.0 Anion Gap 12 12 Estimat Glomerular Filtration Rate 52 83 Lactic Acid Level 3.0 2.3 Urine Opiates Screen NEG Urine Barbiturates Screen NEG Urine Amphetamines Screen NEG Urine Benzodiazepines Screen NEG Urine Cocaine Screen NEG Urine Cannabinoids Screen NEG Ammonia 36 Ethyl Alcohol Level LESS THAN 3 Differential Total Cells Counted 100 Neutrophils % (Manual) 87 Band Neutrophils % 4 Lymphocytes % 1 Monocytes % 6 Eosinophils % 2 Neutrophils # (Manual) 14.4 Platelet Estimate NORMAL Platelet Morphology Comment NORMAL Date/Time Source Procedure Growth Status 02/19/18 17:50 Blood Peripheral Aerobic Blood Culture Pending Received 02/19/18 17:50 Blood Peripheral Anaerobic Blood Culture Pending Received 02/19/18 17:00 Urine Catheterized Urine Urine Culture Pending Received Result Diagram: 02/20/18 0540 02/20/18 0500 Imaging Last 48 hours Impressions Chest X-Ray 02/19/18 1634 Signed Impressions: CONCLUSION: Diffuse interstitial prominence suggesting CHF versus chronic interstitial diaz ges. Renal Ultrasound 02/19/18 0000 Signed Impressions: CONCLUSION: 1. Unremarkable bilateral renal ultrasound. Caprini VTE Risk Assessment Caprini VTE Risk Assessment: Mod/High Risk (score >= 2) Caprini Risk Assessment Model Point Value = 1 Point Value = 2 Point Value = 3 Point Value = 5 Age 41-60 Minor surgery BMI > 25 kg/m2 Swollen legs Varicose veins or History of unexplained or recurrent spontaneous Oral contraceptives or hormone replacement Sepsis (< 1 month) Serious lung disease, including pneumonia (< 1 month) Abnormal pulmonary function Acute myocardial infarction Congestive heart failure (< 1 month) History of inflammatory bowel disease Medical patient at bed rest Age 61-74 Arthroscopic surgery Major open surgery (> 45 min) Laparoscopic surgery (> 45 min) Malignancy Confined to bed (> 72 hours) Immobilizing plaster cast Central venous access Age >= 75 History of VTE Family history of VTE Factor V Leiden Prothrombin [id number] Lupus anticoagulant Anticardiolipin antibodies Elevated serum homocysteine Heparin-induced thrombocytopenia Other congenital or acquired thrombophilia Stroke (< 1 month) Elective arthroplasty Hip, pelvis, or leg fracture Acute spinal cord injury (< 1 month) Prophylaxis Regimen Total Risk Factor Score Risk Level Prophylaxis Regimen 0-1 Low Early ambulation 2 Moderate Order ONE of the following: *Sequential Compression Device (SCD) *Heparin 5000 units SQ BID 3-4 Higher Order ONE of the following medications: *Heparin 5000 units SQ TID *Enoxaparin/Lovenox 40 mg SQ daily (WT < 150 kg, CrCl > 30 mL/min) *Enoxaparin/Lovenox 30 mg SQ daily (WT < 150 kg, CrCl > 10-29 mL/min) *Enoxaparin/Lovenox 30 mg SQ BID (WT < 150 kg, CrCl > 30 mL/min) AND/OR *Sequential Compression Device (SCD) 5 or more Highest Order ONE of the following medications: *Heparin 5000 units SQ TID (Preferred with Epidurals) *Enoxaparin/Lovenox 40 mg SQ daily (WT < 150 kg, CrCl > 30 mL/min) *Enoxaparin/Lovenox 30 mg SQ daily (WT < 150 kg, CrCl > 10-29 mL/min) *Enoxaparin/Lovenox 30 mg SQ BID (WT < 150 kg, CrCl > 30 mL/min) AND *Sequential Compression Device (SCD) Assessment and Plan Assessment and Plan Patient is a 77-year-old male past medical history of urethral strictures (per chart review), glaucoma, hypokalemia and urethral strictures presenting with: Problem List: (1) Sepsis ICD Codes: A41.9 - Sepsis, unspecified organism Status: Acute Plan: IV antibiotics: Rocephin 1 g IV every 24 hours Blood cultures pending Urine cultures pending -Previous urine culture from 02/12 shows Klebsiella pneumonia susceptible to Rocephin IV fluid hydration: Normal saline at 100 mL/hour -Received 1 L bolus of normal saline 1 in the ED Repeat lactic acid was 2.3, we will repeat this in the morning Renal ultrasound unremarkable (2) UTI (urinary tract infection) ICD Codes: N39.0 - Urinary tract infection, site not specified Status: Acute Plan: see plan above (3) Hypokalemia ICD Codes: E87.6 - Hypokalemia Status: Acute Plan: Serum potassium 2.7 today, was 4.3 on arrival -Add 20 mEq of potassium and IV fluids -Oral potassium chloride 40 mEq p.o. 1 Repeat serum potassium later today (4) Hyponatremia ICD Codes: E87.1 - Hypo-osmolality and hyponatremia Status: Resolved Plan: Resolved with IV hydration Continue to follow with daily BMPs and continue IV fluids (5) Dysphagia ICD Codes: R13.10 - Dysphagia, unspecified Status: Chronic Plan: Patient with chronic history of dysphagia with solid foods Follow-up bedside swallow and advance diet to mechanical soft if patient able to pass swallow test. Patient has out-patient GI referral pending (6) ANA (acute kidney injury) ICD Codes: N17.9 - Acute kidney failure, unspecified Status: Acute Plan: Patient with creatinine of 1.33 on arrival, today's creatinine 0.89 with GFR of 83 Continue to monitor Continue IV fluids Avoid nephrotoxic agents (7) History of urethral stricture ICD Codes: Z87.448 - Personal history of other diseases of urinary system Status: Chronic Plan: Per chart review 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 However patient and report he is able to void Small amount of dark urine observed in bedside portable urinal bottle Monitor I's/O's Post void bladder scan shows a residual of 266 mL We will have urology evaluate patient for urinary retention or incomplete bladder drainage (8) Glaucoma ICD Codes: H40.9 - Glaucoma Status: Acute Plan: Continue with home medication (9) HTN (hypertension) ICD Codes: I10 - Hypertension Status: Chronic Plan: Blood pressure relatively well controlled, continue home medications (10) Nutrition, metabolism, and development symptoms ICD Codes: R63.8 - Other symptoms and signs concerning food and fluid intake Plan: Fluids: 100mls/hr Electrolytes: Continue to monitor and replete as needed Nutrition: Regular diet as tolerated DVT prophylaxis: Heparin TID Physician Certification 2 Midnight Certification Type: Admission for Inpatient Services Order for Inpatient Services The services are ordered in accordance with Medicare regulations or non- Medicare payer requirements, as applicable. In the case of services not specified as inpatient-only, they are appropriately provided as inpatient services in accordance with the 2-midnight benchmark. Estimated LOS (days): 2 2 days is the estimated time the patient will need to remain in the hospital, assuming treatment plan goals are met and no additional complications. Post-Hospital Plan: Not yet determined Problem Qualifiers (1) UTI (urinary tract infection): Qualified Codes: N30.00 - Acute cystitis without hematuria Sheldon German MD February 20, 2018 10:33
--- NOTE | 2018-02-20 14:40 | PD.CONS ---
[facility] Service Urology Consult Requested By Dr Escalante Reason for Consult UTI. H/o urethral stricture Primary Care Physician Loren Chapman MD Diagnosis: History of Present Illness 77-year-old male was brought to the emergency department by [facility] yesterday due to progressive confusion, weakness, and malaise. Symptoms started approximately 10 days ago and he was seen in the family medicine clinic on 02/12 with urinary symptoms and started on Macrobid. He has been taking the Macrobid as prescribed but has progressively been getting weaker and more confused. His oral intake has declined and he began having subjective fevers and chills at home. On day of presentation, he became severely weak and was unable to walk or stand, therefore 911 was called by the . In the emergency department he was noted to have indications of a urinary tract infection on his UA and he was started on Rocephin. Urine culture from his office visit on 02/12 returned with Klebsiella pneumonia with intermittent response to Macrobid but is susceptible to Rocephin. He also received 1 L IV bolus of normal saline in the ER Pt currently feels better, no f/c/n/v, no pain. He states that had urethral damaged when has circumcision as a child. After that had recurrent urethral stricture and when was at the had reconstructive urethroplasty done. he does have hypospadia. He states that usually voids frequently with small amounts. Also admits that has issues with incontinence as well. His PVR today was 266cc. He does not have a urologist here in [facility] that saw someone a while ago but was under care at [place] where he lived before, his thinks he was on flomax before. UC is + GNR no final C&S yet. Leukocytosis is improving from 22 to 15. Cr is normal. 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 ( 77yr ago) Recurrent urethral strictures while was in urosepsis (2011) Past Surgical History Tonsillectomy Left arm surgery Cataract surgery Urethroplasty > 50y/a Allergies: Coded Allergies: No Known Allergies (Unverified Allergy, Unknown, 02/19/18) Family History HTN- Daughter MS- father depression- son Social History Former smoker for 20yr, quit 3 yr ago No alcohol or illicit drug use Patient ambulates independently at baseline without use of assistive devices Physical Exam Vital Signs Date Time Temp Pulse Resp B/P (MAP) Pulse Ox O2 Delivery O2 Flow Rate FiO2 02/20/18 12:05 97.7 67 17 115/83 (94) 94 02/20/18 12:00 61 02/20/18 09:00 95 Nasal Cannula 2.00 02/20/18 08:05 97.4 67 17 112/70 (84) 94 02/20/18 08:00 65 02/20/18 04:00 97.4 73 20 108/66 (80) 96 02/20/18 00:00 97.9 87 20 135/75 (95) 96 02/19/18 21:18 97.0 92 16 178/78 (111) 93 02/19/18 20:30 02/19/18 20:00 74 18 138/62 (87) 95 Nasal Cannula 2.00 02/19/18 19:36 95 Nasal Cannula 2.00 02/19/18 17:40 95 Room Air 02/19/18 17:40 76 18 131/65 (87) 95 Nasal Cannula 2.00 02/19/18 17:40 76 18 94 Room Air 02/19/18 17:40 75 18 131/65 (87) 95 2.00 02/19/18 16:19 99.2 98 20 138/83 (101) 98 Physical Exam GENERAL: This is a well-nourished, well-developed patient, in no apparent distress. HEAD: Atraumatic. Normocephalic. . NECK: Trachea midline. No JVD or lymphadenopathy. Supple, nontender, no meningeal signs. CARDIOVASCULAR: Regular rate and rhythm without murmurs, gallops, or rubs. RESPIRATORY: Clear to auscultation. Breath sounds equal bilaterally. No wheezes , rales, or rhonchi. GASTROINTESTINAL: Abdomen soft, non-tender GENITOURINARY: No CVAT, Bladder not distended. + Hypospadia. normal scrotal exam NEUROLOGICAL: Awake and alert. Lab results reviewed: Yes Laboratory Tests Test 02/19/18 17:00 02/20/18 05:00 02/20/18 05:40 White Blood Count 22.0 15.8 Red Blood Count 5.07 4.55 Hemoglobin 16.3 14.7 Hematocrit 46.3 41.6 Mean Corpuscular Volume 91.5 91.5 Mean Corpuscular Hemoglobin 32.2 32.3 Mean Corpuscular Hemoglobin Concent 35.2 35.3 Red Cell Distribution Width 13.5 12.9 Platelet Count 268 246 Mean Platelet Volume 7.7 7.1 Neutrophils (%) (Auto) 89.9 Lymphocytes (%) (Auto) 2.8 Monocytes (%) (Auto) 6.6 Eosinophils (%) (Auto) 0.5 Basophils (%) (Auto) 0.2 Neutrophils # (Auto) 19.8 Lymphocytes # (Auto) 0.6 Monocytes # (Auto) 1.4 Eosinophils # (Auto) 0.1 Basophils # (Auto) 0.0 CBC Comment DIFF FINAL AUTO DIFF Differential Comment FINAL DIFF MANUAL Urine Color YELLOW Urine Turbidity HAZY Urine pH 6.0 Urine Specific [place] 1.015 Urine Protein 30 Urine Glucose (UA) NEG Urine Ketones 40 Urine Occult Blood TRACE Urine Nitrite NEG Urine Bilirubin NEG Urine Urobilinogen 4.0 Urine Leukocyte Esterase LARGE Urine RBC 1 Urine WBC 125 Urine Squamous Epithelial Cells 1 Urine Bacteria MANY Urine Mucus FEW Microscopic Urinalysis Comment CATH-CULTURE IND Blood Urea Nitrogen 13 13 Creatinine 1.33 0.89 Random Glucose 141 109 Total Protein 8.5 6.7 Albumin 3.0 2.5 Calcium Level 9.1 8.0 Alkaline Phosphatase 80 64 Aspartate Amino Transf (AST/SGOT) 89 25 Alanine Aminotransferase (ALT/SGPT) 28 17 Total Bilirubin 1.9 1.1 Sodium Level 128 136 Potassium Level 4.3 2.7 Chloride Level 90 97 Carbon Dioxide Level 26.2 27.0 Anion Gap 12 12 Estimat Glomerular Filtration Rate 52 83 Lactic Acid Level 3.0 2.3 Urine Opiates Screen NEG Urine Barbiturates Screen NEG Urine Amphetamines Screen NEG Urine Benzodiazepines Screen NEG Urine Cocaine Screen NEG Urine Cannabinoids Screen NEG Ammonia 36 Ethyl Alcohol Level LESS THAN 3 Differential Total Cells Counted 100 Neutrophils % (Manual) 87 Band Neutrophils % 4 Lymphocytes % 1 Monocytes % 6 Eosinophils % 2 Neutrophils # (Manual) 14.4 Platelet Estimate NORMAL Platelet Morphology Comment NORMAL B-Type Natriuretic Peptide 40 Date/Time Source Procedure Growth Status 02/19/18 17:50 Blood Peripheral Aerobic Blood Culture - Preliminary NO GROWTH IN 1 DAY Resulted 02/19/18 17:50 Blood Peripheral Anaerobic Blood Culture - Preliminary NO GROWTH IN 1 DAY Resulted 02/19/18 17:00 Urine Catheterized Urine Urine Culture - Preliminary Gram Negative Brendan Resulted Result Diagram: 02/20/18 0545 02/20/18 0500 Personally reviewed images: Yes Imaging Last Impressions Chest X-Ray 02/19/18 1634 Signed Impressions: CONCLUSION: Diffuse interstitial prominence suggesting CHF versus chronic interstitial diaz ges. Renal Ultrasound 02/19/18 0000 Signed Impressions: CONCLUSION: 1. Unremarkable bilateral renal ultrasound. Assessment and Plan Assessment and Plan 77y.o M with Urosepsis and h/o Urethral stricture, s/p urethroplasty long time ago. Has BPH as well and used to be on flomax. He has no Urologist here in [place] for the past 4years Has LUTS with incomplete bladder emptying. PVR is 266cc - Continue management as per primary team - No acute intervention needed - Follow up on final C&S and adjust antbx if needed. - Start Flomax 0.4mg daily and monitor PVRs 1-2times a day - If PVR is stable continue management as is, if its getting worse place blount catheter Pt will need to establish service for further evaluation after d/c. Can call [facility] for appointment at [phone] Angel ZAIDI attending who agrees with this plan Daryn Montiel February 20, 2018 14:40
--- NOTE | 2018-02-20 14:50 | EKG ---
Date Performed: 02/19/2018 Time Performed: 17:32:43 PTAGE: 77 years EKG: Sinus rhythm WITH MARKED SINUS ARRHYTHMIA POSSIBLE LEFT ATRIAL ENLARGEMENT MODERATE INTRAVENTRICULAR CONDUCTION D ELAY NONSPECIFIC T-WAVE ABNORMALITY BORDERLINE ECG NO PREVIOUS TRACING DOCTOR: Antoine Nuñez Interpretating Date/Time 02/20/2018 14:46:14
[2018-02-20 16:28] LABS: BICARBONATE 26.3 MEQ/L (21.0-32.0); CALCIUM 8.6 MG/DL (8.5-10.1); CREATININE 1.19 MG/DL (0.60-1.30)
[2018-02-20] MEDS ORDERED: cefTRIAXone INJ 1,000 MG in SODIUM CHLORIDE 0.9% INJ 100 ML IV SCH (18:00)
[2018-02-20] MEDS ORDERED: POTASSIUM CHLORIDE 20 MEQ CONTROLLED RELEASE TAB PO ONE (18:45)
[2018-02-20] MEDS ORDERED: TAMSULOSIN HCL 0.4 MG CAP PO SCH (20:00)
[2018-02-20] MEDS: LATANOPROST 0.005% OPHT SOLN 2.5 ML BTL EACH EYE SCH (20:53)
[2018-02-20] MEDS: NS + KCL 40 MEQ INJ 1,000 ML IV SCH (20:54)
[2018-02-20 23:35] LABS: CALCIUM 7.8 MG/DL (8.5-10.1); CREATININE 0.95 MG/DL (0.60-1.30)
[2018-02-21] VITALS: PULSE 79
[2018-02-21] MEDS ORDERED: POTASSIUM CHLORIDE 10 MEQ CONTROLLED RELEASE TAB PO ONE
[2018-02-21 00:11] VITALS: BP 104/70; PULSE 79; RESP 20; TEMP 97.5; O2SAT 95
[2018-02-21] MEDS: HEPARIN SODIUM - SQ 10,000 UNITS/ML VIAL SQ SCH ×2 (03:15→13:59)
[2018-02-21 04:00] VITALS: BP 91/65; PULSE 61; PULSE 74; RESP 20; TEMP 98.3; O2SAT 96
[2018-02-21] MEDS ORDERED: SODIUM CHLORID 0.9% 500 ML INJ 500 ML IV ONE (07:15)
[2018-02-21] MEDS: POTASSIUM CHLORIDE 20 MEQ CONTROLLED RELEASE TAB PO SCH (09:04)
[2018-02-21] MEDS: FOLIC ACID 1 MG TAB PO SCH (09:04)
[2018-02-21] MEDS: DOCUSATE SODIUM 50 MG/SENNA 8.6 MG TAB PO SCH (09:04)
[2018-02-21] MEDS: THIAMINE HCL 100 MG TAB PO SCH (09:04)
[2018-02-21] MEDS: SODIUM CHLORIDE 0.9% FLUSH 10 ML FLUSH IV FLUSH SCH (09:04)
[2018-02-21] MEDS: HYDROCHLOROTHIAZIDE 25 MG TAB PO SCH (09:04)
[2018-02-21] MEDS: NS + KCL 40 MEQ INJ 1,000 ML IV SCH (09:04)
[2018-02-21] MEDS: FUROSEMIDE 40 MG TAB PO SCH (09:04)
[2018-02-21 09:05] VITALS: BP 103/62; PULSE 67; RESP 18; TEMP 97.9; O2SAT 96
[2018-02-21] MEDS: MULTIVITAMINS/MINERALS THERAPEUTIC TAB PO SCH (09:05)
[2018-02-21 10:05] LABS: HEMATOCRIT 37.7 % (39.0-51.0); HEMOGLOBIN 13.2 GM/DL (13.0-17.0); MEAN CELL VOLUME 90.9 FL (80.0-100.0); MEAN CORPUSCULAR HEMOGLOBIN 31.7 PG (27.0-34.0); MEAN CORPUSCULAR HGB CONC 34.9 % (32.0-36.0); MEAN PLATELET VOLUME 7.4 FL (7.0-11.0); PLATELET COUNT 247 TH/MM3 (150-450); RED BLOOD COUNT 4.14 MIL/MM3 (4.50-5.90); WHITE BLOOD COUNT 7.5 TH/MM3 (4.0-11.0)
[2018-02-21 10:42] LABS: BICARBONATE 24.6 MEQ/L (21.0-32.0); CALCIUM 7.8 MG/DL (8.5-10.1); CREATININE 0.83 MG/DL (0.60-1.30)
--- NOTE | 2018-02-21 10:50 | HHI.FPPN ---
Subjective Remarks No acute issues overnight. Vitals are stable, patient remains afebrile. He denies any chest pain, shortness of breath, fever, chills, nausea or vomiting. Intake 1749ml, output 1125mg, balance of 624ml. He had four voids in the past 24 hours. He is tolerating PO. (Kenzie Meza MD R3) Objective Vitals Vital Signs Date Time Temp Pulse Resp B/P (MAP) Pulse Ox O2 Delivery O2 Flow Rate FiO2 02/21/18 09:05 97.9 67 18 103/62 (76) 96 02/21/18 04:00 61 02/21/18 04:00 98.3 74 20 91/65 (74) 96 02/21/18 00:11 97.5 79 20 104/70 (81) 95 02/21/18 00:00 79 02/20/18 20:00 97.4 63 20 125/75 (92) 99 02/20/18 20:00 67 02/20/18 20:00 Nasal Cannula 2.00 02/20/18 17:46 96 Nasal Cannula 2.00 02/20/18 16:05 97.5 77 17 111/81 (91) 96 02/20/18 16:00 71 02/20/18 12:05 97.7 67 17 115/83 (94) 94 02/20/18 12:00 61 I/O 02/20/18 02/20/18 02/20/18 02/21/18 02/21/18 02/21/18 07:00 15:00 23:00 07:00 15:00 23:00 Intake Total 700 ml 1049 ml Output Total 200 ml 450 ml 675 ml Balance -200 ml 250 ml 374 ml Intake Oral 600 ml 240 ml IV Total 100 ml 809 ml Output Urine Total 200 ml 450 ml 675 ml Bladder Scan Volume Amount 266 ml # Voids 3 2 2 # Bowel Movements 0 1 (Kenzie Meza MD R3) Result Diagram: 02/21/18 0850 02/20/18 2235 Imaging Last Impressions Chest X-Ray 02/19/18 1634 Signed Impressions: CONCLUSION: Diffuse interstitial prominence suggesting CHF versus chronic interstitial diaz ges. Renal Ultrasound 02/19/18 0000 Signed Impressions: CONCLUSION: 1. Unremarkable bilateral renal ultrasound. Objective Remarks GENERAL: male in no acute distress. SKIN: Warm and dry. HEAD: Normocephalic. EYES: No scleral icterus. No injection or drainage. NECK: Supple, trachea midline. No JVD or lymphadenopathy. CARDIOVASCULAR: Regular rate and rhythm without murmurs, gallops, or rubs. RESPIRATORY: Breath sounds equal bilaterally. No accessory muscle use. GASTROINTESTINAL: Abdomen soft, non-tender, nondistended. MUSCULOSKELETAL: No cyanosis, or edema. BACK: Nontender without obvious deformity. (Kenzie Meza MD R3) A/P Assessment and Plan Patient is a 77-year-old male with past medical history of urethral strictures, glaucoma, hypokalemia and urethral strictures admitted for sepsis secondary to UTI. Discharge Planning Pending continued clinical improvement, likely in the next 1-2 days. (Kenzie Meza MD R3) Attending Attestation Pt. examined independently and case discussed with resident physicians I have read the above note and agree with the assessment/plan as discussed with me I was involved in all medical decision making for this patient Sheldon German MD (Sheldon German MD) Problem List: (1) UTI (urinary tract infection) ICD Codes: N39.0 - Urinary tract infection, site not specified Status: Acute Plan: Rocephin 1 g IV every 24 hours (started 02/19) Blood cultures no growth 1 day Urine cultures growing gram negative sven -Previous urine culture from 02/12 shows Klebsiella pneumonia susceptible to Rocephin Leukocytosis trending down to wnl today IV fluid hydration with NS + KCl @ 100ml/hr lactic acid elevated at 2.3, repeat pending Renal ultrasound unremarkable (2) Hypokalemia ICD Codes: E87.6 - Hypokalemia Status: Acute Plan: Trending up to 3.2 after replacement, BMP pending today -Continue potassium replacement in IV fluids as above (3) Dysphagia ICD Codes: R13.10 - Dysphagia, unspecified Status: Chronic Plan: Patient has out-patient GI referral pending (4) History of urethral stricture ICD Codes: Z87.448 - Personal history of other diseases of urinary system Status: Chronic Plan: Per chart review 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 Monitor I's/O's Urology consulted- No acute intervention needed, start Flomax 0.4mg PO daily for BPH. If PVR worsens, place blount. Establish with urology after discharge. (5) Glaucoma ICD Codes: H40.9 - Glaucoma Status: Chronic Plan: Continue with home medication (6) HTN (hypertension) ICD Codes: I10 - Hypertension Status: Chronic Plan: Blood pressure relatively well controlled, continue home medications (7) Nutrition, metabolism, and development symptoms ICD Codes: R63.8 - Other symptoms and signs concerning food and fluid intake Status: Chronic Plan: Fluids: NS + 40meq KCl @ 100mls/hr Electrolytes: Continue to monitor and replete as needed Nutrition: Regular diet as tolerated DVT prophylaxis: Heparin TID (Kenzie Meza MD R3) Problem Qualifiers (1) UTI (urinary tract infection): Qualified Codes: N30.00 - Acute cystitis without hematuria (2) Dysphagia: Qualified Codes: R13.10 - Dysphagia, unspecified (3) HTN (hypertension): Qualified Codes: I10 - Essential (primary) hypertension Kenzie Meza MD R3 Feb 21, 2018 10:50 Sheldon German MD Feb 21, 2018 15:24
[2018-02-21 11:28] VITALS: BP 128/62; PULSE 85; RESP 17; TEMP 97.5; O2SAT 96
--- NOTE | 2018-02-21 12:10 | HHI.FF ---
Face to Face Verification Diagnosis: (1) Sepsis (2) UTI (urinary tract infection) Physical Therapy Order: Evaluate and Treat, Improve ambulation, Strength and gait training I have seen patient Zeyad Isaacs on 02/21/18. My clinical findings support the need for the requested home health care services because: Ltd mobility - disease progression Deconditioned w/ increased weakness Limited ability to care for self I certify that my clinical findings support that this patient is homebound because: Impaired cognitive ability/safety Unsteady gait/balance Christie Parks MD R1 Feb 21, 2018 12:10
--- NOTE | 2018-02-21 12:11 | HHI.DCPOC ---
Discharge Care Plan Diagnosis: (1) UTI (urinary tract infection) (2) Sepsis Goals to Promote Your Health * To prevent worsening of your condition and complications * To maintain your health at the optimal level Directions to Meet Your Goals Take your medications as prescribed Follow your dietary instruction Follow activity as directed Keep your appointments as scheduled Take your immunizations and boosters as scheduled If your symptoms worsen call your PCP, if no PCP go to Urgent Care Center or Emergency Room Smoking is Dangerous to Your Health. Avoid second hand smoke Call the 24-hour hour crisis hotline for domestic abuse at Christie Parks MD R1 Feb 21, 2018 12:11
--- NOTE | 2018-02-21 12:11 | HHI.DS ---
Discharge Summary Admission Date February 19, 2018 at 18:40 Admitting Diagnosis Sepsis, uti (1) UTI (urinary tract infection) Plan: Rocephin 1 g IV every 24 hours (started 02/19) Blood cultures no growth 1 day Urine cultures growing gram negative sven -Previous urine culture from 02/12 shows Klebsiella pneumonia susceptible to Rocephin Leukocytosis trending down to wnl today IV fluid hydration with NS + KCl @ 100ml/hr lactic acid elevated at 2.3, repeat pending Renal ultrasound unremarkable ICD Codes: N39.0 - Urinary tract infection, site not specified Status: Acute (2) Hypokalemia Plan: Trending up to 3.2 after replacement, BMP pending today -Continue potassium replacement in IV fluids as above ICD Codes: E87.6 - Hypokalemia Status: Acute (3) Dysphagia Plan: Patient has out-patient GI referral pending ICD Codes: R13.10 - Dysphagia, unspecified Status: Chronic (4) History of urethral stricture Plan: Per chart review 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 Monitor I's/O's Urology consulted- No acute intervention needed, start Flomax 0.4mg PO daily for BPH. If PVR worsens, place blount. Establish with urology after discharge. ICD Codes: Z87.448 - Personal history of other diseases of urinary system Status: Chronic (5) Glaucoma Plan: Continue with home medication ICD Codes: H40.9 - Glaucoma Status: Chronic (6) HTN (hypertension) Plan: Blood pressure relatively well controlled, continue home medications ICD Codes: I10 - Hypertension Status: Chronic (7) Nutrition, metabolism, and development symptoms Plan: Fluids: NS + 40meq KCl @ 100mls/hr Electrolytes: Continue to monitor and replete as needed Nutrition: Regular diet as tolerated DVT prophylaxis: Heparin TID ICD Codes: R63.8 - Other symptoms and signs concerning food and fluid intake Status: Chronic Brief History 77-year-old male presenting with sepsis from a urinary tract infection. He was brought to the emergency department by [facility] due to progressive confusion, weakness, and malaise. Symptoms started approximately 10 days ago and he was seen in the family medicine clinic on 02/12 with urinary symptoms and started on Macrobid. He has been taking the Macrobid as prescribed but has progressively been getting weaker and more confused. His oral intake has declined and he began having subjective fevers and chills at home. On day of presentation, he became severely weak and was unable to walk or stand, therefore 911 was called by the . In the emergency department he was noted to have indications of a urinary tract infection on his UA and he was started on Rocephin. Urine culture from his office visit on 02/12 returned with Klebsiella pneumonia with intermittent response to Macrobid but is susceptible to Rocephin. He also received 1 L IV bolus of normal saline in the ER. On evaluation this morning, patient seems to be doing much better. He is awake alert and oriented and states that he is feeling much improved. He feels hungry at this time and would like to eat. He denies any fevers or chills. He denies any nausea or vomiting. He denies any abdominal pain. He denies any chest pain or shortness of breath. He continues to feel weak and would like to work with physical therapy. He is urinating, however states that his urine is dark and he did have a postvoid residual of 266 mL based on bladder scan. CBC/BMP: 02/21/18 0850 02/21/18 0850 Significant Findings Laboratory Tests Test 02/19/18 17:00 02/20/18 05:00 02/20/18 05:40 02/20/18 15:42 White Blood Count 22.0 TH/MM3 (4.0-11.0) 15.8 TH/MM3 (4.0-11.0) Neutrophils (%) (Auto) 89.9 % (16.0-70.0) Lymphocytes (%) (Auto) 2.8 % (9.0-44.0) Neutrophils # (Auto) 19.8 TH/MM3 (1.8-7.7) Lymphocytes # (Auto) 0.6 TH/MM3 (1.0-4.8) Monocytes # (Auto) 1.4 TH/MM3 (0-0.9) Urine Turbidity HAZY (CLEAR) Urine Protein 30 mg/dL (NEG-TRACE) Urine Ketones 40 mg/dL (NEG) Urine Occult Blood TRACE (NEG) Urine Urobilinogen 4.0 MG/DL (LESS THAN Urine Leukocyte Esterase LARGE (NEG) Urine WBC 125 /hpf (0-5) Urine Bacteria MANY /hpf (NONE) Urine Mucus FEW /lpf (OCC) Creatinine 1.33 MG/DL (0.60-1.30) Random Glucose 141 MG/DL (74-106) 109 MG/DL (74-106) 111 MG/DL (74-106) Total Protein 8.5 GM/DL (6.4-8.2) Albumin 3.0 GM/DL (3.4-5.0) 2.5 GM/DL (3.4-5.0) Aspartate Amino Transf (AST/SGOT) 89 U/L (15-37) Total Bilirubin 1.9 MG/DL (0.2-1.0) 1.1 MG/DL (0.2-1.0) Sodium Level 128 MEQ/L (136-145) 135 MEQ/L (136-145) Chloride Level 90 MEQ/L (98-107) 97 MEQ/L (98-107) Estimat Glomerular Filtration Rate 52 ML/MIN (>89) 83 ML/MIN (>89) 59 ML/MIN (>89) Lactic Acid Level 3.0 mmol/L (0.4-2.0) 2.3 mmol/L (0.4-2.0) Calcium Level 8.0 MG/DL (8.5-10.1) Potassium Level 2.7 MEQ/L (3.5-5.1) 2.9 MEQ/L (3.5-5.1) Ammonia 36 MCMOL/L (11-32) Neutrophils % (Manual) 87 % (16-70) Lymphocytes % 1 % (9-44) Neutrophils # (Manual) 14.4 TH/MM3 (1.8-7.7) Test 02/20/18 22:35 02/21/18 08:50 Random Glucose 112 MG/DL (74-106) Calcium Level 7.8 MG/DL (8.5-10.1) 7.8 MG/DL (8.5-10.1) Sodium Level 135 MEQ/L (136-145) Potassium Level 3.2 MEQ/L (3.5-5.1) Estimat Glomerular Filtration Rate 77 ML/MIN (>89) Red Blood Count 4.14 MIL/MM3 (4.50-5.90) Hematocrit 37.7 % (39.0-51.0) PE at Discharge GENERAL: male in no acute distress. SKIN: Warm and dry. HEAD: Normocephalic. EYES: No scleral icterus. No injection or drainage. NECK: Supple, trachea midline. No JVD or lymphadenopathy. CARDIOVASCULAR: Regular rate and rhythm without murmurs, gallops, or rubs. RESPIRATORY: Breath sounds equal bilaterally. No accessory muscle use. GASTROINTESTINAL: Abdomen soft, non-tender, nondistended. MUSCULOSKELETAL: No cyanosis, or edema. BACK: Nontender without obvious deformity. Christie Parks MD R1 Feb 21, 2018 12:11
[2018-02-21] MEDS ORDERED: TAMS5CAP PO (12:13)
[2018-02-21 12:15] VITALS: PULSE 67
[2018-02-21] MEDS ORDERED: CIPR500T2 PO (12:15)
--- NOTE | 2018-02-22 14:08 | EKG ---
Date Performed: 02/21/2018 Time Performed: 12:57:16 PTAGE: 77 years EKG: Sinus rhythm with PAC(s). Borderline ECG PREVIOUS TRACING 02/19/18 Since previous tracing, the intraventricular conduction delay is no l onger present and T-waves are now normal. DOCTOR: Adele Guerrero Interpretating Date/Time 02/22/2018 14:08:10
== END 2018-02-21 15:13 | disposition home health service (06) | DRG 872 ==
LOC: NEPC 16:07 → NEDA 18:40 → N04B 20:55
PROVIDERS: ADMIT Family Medicine; ATTEND Family Medicine
DX: A41.4 Sepsis due to anaerobes (principal); N17.9 Acute kidney failure, unspecified; I11.0 Hypertensive heart disease with heart failure; N39.0 Urinary tract infection, site not specified; I50.9 Heart failure, unspecified; E87.1 Hypo-osmolality and hyponatremia; R65.20 Severe sepsis without septic shock; N35.9 Urethral stricture, unspecified; N99.89 Other postprocedural complications and disorders of genitourinary system; E87.6 Hypokalemia; N40.1 Benign prostatic hyperplasia with lower urinary tract symptoms; R33.8 Other retention of urine; R13.10 Dysphagia, unspecified; Y83.8 Other surgical procedures as the cause of abnormal reaction of the patient, or of later complication, without mention of misadventure at the time of the procedure; H40.9 Unspecified glaucoma; Z87.891 Personal history of nicotine dependence
CPT/HCPCS: 51702; 71045; 76775; 80048; 80053; 80307; 81001; 82140; 83605; 83880; 85007; 85025; 85027; 87040; 87077; 87086; 87186; 93005; 94150; 96365; J0696; J1644; J3480; J7030; J7040